=== PATIENT | female | born 1950 | race Caucasian/White ===

== ENCOUNTER 2016-12-04 08:41 | Outpatient (CLI) | payer MEDICARE | END 2016-12-04 08:42 | disposition home or self-care (01) | DX: Z13.220 Encounter for screening for lipoid disorders (principal) ==

== ENCOUNTER 2016-12-28 08:51 | Outpatient (CLI) | payer MEDICARE | END 2016-12-28 08:52 | disposition home or self-care (01) | DX: I10 Essential (primary) hypertension (principal) ==

== ENCOUNTER 2017-02-26 14:47 | Outpatient (CLI) | payer MEDICARE ==
--- NOTE | 2017-03-05 16:30 | Mammography Report ---
DIGITAL SCREENING MAMMOGRAM: 02/26/2017 CLINICAL INDICATION: A 66-year-old nulliparous patient with family history of breast cancer, history of benign biopsy for screening. COMPARISON: Films from [place], [place] dated 05/02/2013, 01/24/2011, 01/24/2010. TECHNIQUE: Routine CC and MLO projections were obtained of the breasts. FINDINGS: The breasts again demonstrate scattered fibroglandular parenchyma bilaterally. Coarse and punctate, typically benign calcifications are present. No suspicious masses, clustered microcalcifi cations, or regions of architectural distortion are identified. IMPRESSION: BENIGN FINDINGS. RECOMMENDATION: Routine annual screening unless otherwise clinically indicated. BI-RADS category 2, benign findings. STANDARD QUALIFYING STATEMENTS 1. This examination was reviewed with the aid of Computer-Aided Detection (CAD). 2. A negative or benign imaging report should not delay biopsy if clinically suspicious findings are present. Consider surgical consultation if warranted. More than 5% of cancers are not identified by i maging. 3. Dense breasts may obscure an underlying neoplasm. JOB #: [id number] EXT JOB #:[id number]
== END 2017-02-26 14:48 | disposition home or self-care (01) ==
LOC: DI.S 14:47
PROVIDERS: ATTEND Nurse Practitioner Family
DX: Z12.31 Encounter for screening mammogram for malignant neoplasm of breast (principal); Z80.3 Family history of malignant neoplasm of breast
CPT/HCPCS: 77067

== ENCOUNTER 2017-05-23 13:58 | Outpatient (CLI) | payer MEDICARE ==
--- NOTE | 2017-05-24 10:55 | XRAY Report ---
FOUR VIEW RIGHT KNEE: 05/23/2017 CLINICAL INDICATION: Pain. FINDINGS: AP, bilateral oblique, lateral views of the right knee demonstrate moderate to severe righ t knee osteoarthritis. There is no evidence of acute fracture. No effusion is present. There is an in tramedullary sheron in the tibia, with two proximal and two distal locking screws in place, with a heale d mid shaft fracture of the tibia, and two healed fractures of the fibular shaft noted. IMPRESSION: MODERATE TO SEVERE RIGHT KNEE OSTEOARTHRITIS. PREVIOUS ORIF OF THE RIGHT TIBIA. JOB #: [id number] EXT JOB #:[id number]
== END 2017-05-23 13:59 | disposition home or self-care (01) ==
LOC: DI.S 13:58
PROVIDERS: ATTEND Nurse Practitioner Family
DX: M17.11 Unilateral primary osteoarthritis, right knee (principal)

== ENCOUNTER 2017-07-09 14:51 | Outpatient (CLI) | payer MEDICARE, OTHER ==
--- NOTE | 2017-07-09 16:34 | MRI Report ---
EXAM: RIGHT KNEE MRI WITHOUT CONTRAST EXAM DATE: 07/09/2017 03:35 PM. CLINICAL HISTORY: COMPLEX TEAR OF LATERAL MENISCUS, CURRENT INJ. COMPARISON: None. TECHNIQUE: Multiplanar, multisequence T1-weighted and fluid-sensitive sequences of the knee without c ontrast. Other: Had to use flex-m coil due to size of knee unable to fit in knee coil. FINDINGS: Bones: Hardware in proximal tibia created magnetic susceptibility artifacts obscuring adjacent struct ures. No fractures or subluxations. Tricompartmental osteoarthritis with large osteophytes. Articular Cartilage: Grade 3 to 4 cartilaginous degeneration with severe thinning and probable denuda tion in the medial femoral condyle and medial tibial plateau with joint space narrowing. Grade 3 dege neration with thinning and irregular surface in the patella, trochlea, lateral femoral condyle and la teral tibial plateau. Medial Meniscus: Diffuse degenerative signal and surface fraying in the medial meniscus. Small tears may be present. Lateral Meniscus: Macerated appearance of the body and posterior horn of the lateral meniscus consist ent with complex tears. A horizontal tear is present in the anterior horn. Cruciate Ligaments: The anterior cruciate ligament is lax with diffuse mildly increased signal and il l-defined fibers suggestive of intrasubstance partial-thickness tear. The posterior cruciate ligament is intact. Collateral Ligaments: The medial collateral and lateral collateral ligamentous structures are intact. Tendons: The quadriceps, patellar, semimembranosus, and popliteus tendons are unremarkable. Musculature: No edema. [id number] muscular fatty atrophy. Other: Mild effusion. No popliteal cyst. Multiple loose bodies, the largest is posterior to the media l femoral condyle measuring 1.9 cm. The medial and lateral retinacula, patellofemoral ligaments and iliotibial band are intact. No bursitis. The subcutaneous tissues and fat pads are unremarkable. IMPRESSION: 1. Internal derangement with multiple abnormalities. 2. Macerated appearance of the body and posterior horn of the lateral meniscus consistent with comple x tears. A horizontal tear is present in the anterior horn. 3. Diffuse degenerative signal and surface fraying in the medial meniscus. Small tears may be present . 4. The anterior cruciate ligament is lax with diffuse mildly increased signal and ill-defined fibers suggestive of intrasubstance partial-thickness tear. 5. Tricompartmental osteoarthritis with large osteophytes. No fracture. 6. Grade 3 to 4 cartilaginous degeneration with severe thinning and probable denudation in the medial femoral condyle and medial tibial plateau with joint space narrowing. Grade 3 degeneration with thin rebecca and irregular surface in the patella, trochlea, lateral femoral condyle and lateral tibial plate au. 7. Multiple intra-articular loose bodies. [facility] MUSCULOSKELETAL RADIOLOGY SECTION Referring Provider Line: [phone] SITE ID: [id number]
== END 2017-07-09 14:52 | disposition home or self-care (01) ==
LOC: DI 14:51
PROVIDERS: ATTEND Orthopaedic Surgery
DX: S83.271A Complex tear of lateral meniscus, current injury, right knee, initial encounter (principal); M23.91 Unspecified internal derangement of right knee; M17.0 Bilateral primary osteoarthritis of knee; M23.41 Loose body in knee, right knee

== ENCOUNTER 2018-04-22 08:53 | Outpatient (CLI) | payer MEDICARE, OTHER ==
[2018-04-22 13:09] LABS: BASOPHILS % (AUTO) 0.6 %; EOSINOPHILS # (AUTO) 0.1 10^3/uL (0.0-0.7); EOSINOPHILS % (AUTO) 1.4 %; HGB - HEMOGLOBIN 13.8 g/dL (12.0-16.0); LYMPHOCYTES # (AUTO) 1.3 10^3/uL (1.5-3.5); MEAN CORPUSCULAR HGB CONC 32.7 g/dL (32.0-36.0); MEAN CORPUSCULAR VOLUME 91.8 fL (81.0-99.0); MONOCYTES # (AUTO) 0.7 10^3/uL (0.0-1.0); MONOCYTES % (AUTO) 8.4 %; NEUTROPHILS # (AUTO) 5.7 10^3/uL (1.5-6.6); NEUTROPHILS % (AUTO) 72.6 %; PLT - PLATELET COUNT 332 10^3/uL (130-450); RED BLOOD COUNT 4.59 10^6/uL (4.20-5.40); RED CELL DISTRIBUTION WIDTH 14.6 % (12.0-15.0); WHITE BLOOD COUNT 7.9 x10^3/uL (4.8-10.8)
[2018-04-22 13:37] LABS: ALBUMIN 3.8 g/dL (3.2-5.5); ALBUMIN/GLOBULIN RATIO 1.1 (1.0-2.2); ALKALINE PHOSPHATASE 67 IU/L (42-121); ALT ALANINE AMINOTRANSFERASE 15 IU/L (10-60); AST ASPARTATE AMINOTRANSFERASE 19 IU/L (10-42); BILIRUBIN,TOTAL 0.7 mg/dL (0.2-1.0); BUN - BLOOD UREA NITROGEN 23 mg/dL (6-20); CALCIUM 9.3 mg/dL (8.5-10.3); CARBON DIOXIDE - CO2 26 mmol/L (21-32); CHLORIDE 105 mmol/L (101-111); CHOL/HDL RATIO 4.1 (<4.4); CHOLESTEROL 273 mg/dL; CREATININE 0.7 mg/dL (0.4-1.0); GFR - MDRD 84 (>89); GLUCOSE 108 mg/dL (70-100); HDL CHOLESTEROL 67 mg/dL; LDL CHOLESTEROL,CALCULATED 183 mg/dL; LDL/HDL RATIO 2.7 (<4.4); SODIUM 138 mmol/L (135-145); TOTAL PROTEIN 7.2 g/dL (6.7-8.2); VLDL CHOLESTEROL 23 mg/dL
== END 2018-04-22 08:54 | disposition home or self-care (01) ==
LOC: LAB.F 08:53
PROVIDERS: ATTEND Nurse Practitioner Family
DX: Z13.220 Encounter for screening for lipoid disorders (principal); I10 Essential (primary) hypertension
CPT/HCPCS: 36415; 80053; 80061; 83721; 84443; 85025

== ENCOUNTER 2018-05-29 16:27 | Outpatient (CLI) | payer MEDICARE, OTHER | END 2018-05-29 16:28 | disposition home or self-care (01) | LOC: RT.S 16:27 | PROVIDERS: ATTEND Nurse Practitioner Family | DX: Z01.810 Encounter for preprocedural cardiovascular examination (principal); M17.11 Unilateral primary osteoarthritis, right knee | CPT/HCPCS: 93005 ==

== ENCOUNTER 2018-05-30 08:38 | Outpatient (CLI) | payer MEDICARE, OTHER ==
[2018-05-30 10:37] LABS: INR 1.1 (0.8-1.2); PT - PROTHROMBIN TIME 12.2 secs (9.9-12.6)
[2018-05-30 10:43] LABS: BASOPHILS # (AUTO) 0.1 10^3/uL (0.0-0.1); EOSINOPHILS # (AUTO) 0.1 10^3/uL (0.0-0.7); LYMPHOCYTES # (AUTO) 1.2 10^3/uL (1.5-3.5); MONOCYTES # (AUTO) 0.6 10^3/uL (0.0-1.0); MONOCYTES % (AUTO) 7.3 %; PLT - PLATELET COUNT 326 10^3/uL (130-450)
[2018-05-30 10:55] LABS: ALBUMIN 4.2 g/dL (3.2-5.5); ALBUMIN/GLOBULIN RATIO 1.4 (1.0-2.2); ALKALINE PHOSPHATASE 78 IU/L (42-121); ALT ALANINE AMINOTRANSFERASE 19 IU/L (10-60); AST ASPARTATE AMINOTRANSFERASE 20 IU/L (10-42); BASOPHILS % (AUTO) 0.8 %; BILIRUBIN,TOTAL 0.8 mg/dL (0.2-1.0); BUN - BLOOD UREA NITROGEN 17 mg/dL (6-20); CALCIUM 9.6 mg/dL (8.5-10.3); CARBON DIOXIDE - CO2 27 mmol/L (21-32); CHLORIDE 104 mmol/L (101-111); CREATININE 0.9 mg/dL (0.4-1.0); EOSINOPHILS % (AUTO) 1.1 %; GFR - MDRD 63 (>89); GLUCOSE 114 mg/dL (70-100); HGB - HEMOGLOBIN 14.1 g/dL (12.0-16.0); LYMPHOCYTES % (AUTO) 15.3 %; MEAN CORPUSCULAR HEMOGLOBIN 30.3 pg (27.0-31.0); MEAN CORPUSCULAR HGB CONC 33.7 g/dL (32.0-36.0); MEAN CORPUSCULAR VOLUME 90.1 fL (81.0-99.0); MEAN PLATELET VOLUME 9.2 fL (7.9-10.8); NEUTROPHILS # (AUTO) 6.1 10^3/uL (1.5-6.6); NEUTROPHILS % (AUTO) 75.5 %; RED BLOOD COUNT 4.65 10^6/uL (4.20-5.40); RED CELL DISTRIBUTION WIDTH 14.4 % (12.0-15.0); SODIUM 140 mmol/L (135-145); TOTAL PROTEIN 7.3 g/dL (6.7-8.2)
[2018-05-30 10:59] LABS: CRP - C-REACTIVE PROTEIN < 1.0 mg/dL (0-1.0)
== END 2018-05-30 08:39 | disposition home or self-care (01) ==
LOC: LAB.F 08:38
PROVIDERS: ATTEND Nurse Practitioner Family
DX: Z01.818 Encounter for other preprocedural examination (principal); M17.11 Unilateral primary osteoarthritis, right knee
CPT/HCPCS: 36415; 80053; 85025; 85610; 85651; 86140

== ENCOUNTER 2019-07-28 14:08 | Outpatient (CLI) | payer MEDICARE, OTHER ==
--- NOTE | 2019-07-29 11:04 | DEXA Report ---
Reason: MENOPAUSAL AND POSTMENOPAUSAL DISORDER Procedure Date: 07/28/2019 Accession Number: [id number] / [id number] Procedure: DEX - Dexa Spine and/or Hip CPT Code: FULL RESULT: EXAM: Dexa Spine and/or Hip DATE: 07/28/2019 2:47 PM CLINICAL HISTORY: MENOPAUSAL AND POSTMENOPAUSAL DISORDER TECHNIQUE: Dual energy x-ray absorptiometry (DXA) was performed on a LYCEEM System. Regions measured are the AP Spine, femoral neck, and if needed forearm. COMPARISON: None. In accordance with the International Society for Clinical Densitometry (ISCD) guidelines, data from previous exams may be reanalyzed using current recommendations and techniques. This is done to allow a more accurate basis for comparison with the current study. FINDINGS: The data for the lumbar spine is as follows: BMD (g/cm/cm) T-SCORE Z-SCORE REGION L1 1.313 1.5 2.0 L2 1.501 2.5 3.0 L3 1.580 3.2 3.7 L4 1.705 4.2 4.7 TOTAL 1.538 3.0 3.5 NOTE: All evaluable vertebrae are used for classification The data for the hip is as follows: BMD (g/cm/cm) T-SCORE Z-SCORE REGION Neck 0.932 -0.8 0.1 TOTAL 1.046 0.3 0.8 NOTE: The femoral neck or total proximal femur, whichever is lowest, is used for classification. IMPRESSION: THE WHO CLASSIFICATION BASED ON THE INTERNATIONAL REFERENCE STANDARD IS NORMAL. THE FRACTURE RISK IS NOT INCREASED. RECOMMENDATION: Patients with diagnosis of osteoporosis or osteopenia should have regular bone mineral density assessment. For those eligible for Medicare, routine testing is allowed once every 2 years. Testing frequency can be increased for patients who have rapidly progressing disease or for those who are receiving medical therapy to restore bone mass. COMMENT: World Health Organization (WHO) definitions for osteoporosis and osteopenia: NORMAL BMD: T-score at -1.0 or higher, fracture risk is low OSTEOPENIA BMD: T-score between -1.0 and -2.5, fracture risk is increased. OSTEOPOROSIS BMD: T-score at -2.5 or lower, fracture risk is high. National Osteoporosis Foundation recommends: 1. Obtain adequate dietary calcium (at least 1200 mg per day) and vitamin D (400-800 international units per day). 2. Participate, as appropriate, in regular weightbearing and muscle-strengthening exercise. 3. Avoid tobacco use and reduce alcohol and caffeine intake. 4. For more detailed information see the website at www.NOF.org.
== END 2019-07-28 14:09 | disposition home or self-care (01) ==
LOC: DI 14:08
PROVIDERS: ATTEND Internal Medicine
DX: N95.8 Other specified menopausal and perimenopausal disorders (principal)
CPT/HCPCS: 77080

== ENCOUNTER 2019-07-28 14:13 | Outpatient (CLI) | payer MEDICARE, OTHER ==
--- NOTE | 2019-07-29 12:44 | Mammography Report ---
Reason: SCREENING MAMMO Procedure Date: 07/28/2019 Accession Number: [id number] / [id number] Procedure: FELISA - Screening Mammo w/Filemon CPT Code: FULL RESULT: EXAM: Screening Mammo w/Filemon DATE: 07/28/2019 2:57 PM CLINICAL HISTORY: Routine screening TECHNIQUE: (B) - Bilateral CC and MLO views were obtained. COMPARISON: 02/26/2017, 07/03/2013, 01/24/2011 and 01/24/2010 PARENCHYMAL PATTERN: (F) - The breasts demonstrate diffuse fatty replacement bilaterally. FINDINGS: No significant interval change. There are no suspicious masses, calcifications, or areas of distortion. IMPRESSION: Negative examination. BI-RADS category 1. RECOMMENDATION: (ANNUAL) - Recommend routine annual screening mammography. BI-RADS CATEGORY: (1) - Negative. STANDARD QUALIFYING STATEMENTS: 1. This examination was not reviewed with the aid of Computer-Aided Detection (CAD). 2. A negative or benign imaging report should not preclude biopsy if clinically suspicious findings are present. 3. Dense breasts may obscure an underlying neoplasm. 4. This examination was reviewed with the aid of 3D breast imaging (tomosynthesis).
== END 2019-07-28 14:14 | disposition home or self-care (01) ==
LOC: DI 14:13
PROVIDERS: ATTEND Internal Medicine
DX: Z12.31 Encounter for screening mammogram for malignant neoplasm of breast (principal)
CPT/HCPCS: 77063; 77067

== ENCOUNTER 2021-12-12 13:05 | Outpatient (CLI) | payer MEDICARE, OTHER ==
--- NOTE | 2021-12-13 07:17 | Mammography Report ---
BILATERAL DIGITAL SCREENING MAMMOGRAM 3D/2D: 12/12/2021 CLINICAL: Routine screening. Family history of breast cancer. Comparison is made to exams dated: 07/28/2019 mammogram and 02/26/2017 mammogram - Located within [facility]. There are scattered fibroglandular elements in both breasts. There are benign calcifications in both breasts. No significant masses, calcifications, or other findings are seen in either breast. There has been no significant interval change. IMPRESSION: BENIGN There is no mammographic evidence of malignancy. A 1 year screening mammogram is recommended. This exam was interpreted at Station ID: [id number]. NOTE: For mammograms, a report in lay terms will be sent to the patient. Approximately 15% of breast malignancies will not be visualized mammographically. In the management of a palpable breast mass, a negative mammogram must not discourage biopsy of a clinically suspicious lesion. Electronically Signed By: Jluis Robin M.D. ddp/penrad:12/12/2021 15:53:45 ACR BI-RADS Category 2: Benign Finding(s) 3342F PARENCHYMAL PATTERN: (A) - The breast(s) demonstrate(s) scattered fibroglandular densities. BI-RADS CATEGORY: (2) - 2 RECOMMENDATION: (ANNUAL) - Recommend routine annual screening mammography. [id number] 1 year screening LATERALITY: (B)
== END 2021-12-12 13:06 | disposition home or self-care (01) ==
LOC: DI.S 13:05
PROVIDERS: ATTEND Physician Assistant
DX: Z12.31 Encounter for screening mammogram for malignant neoplasm of breast (principal); Z80.3 Family history of malignant neoplasm of breast

== ENCOUNTER 2022-03-06 12:40 | Outpatient (CLI) | payer MEDICARE, OTHER ==
[2022-03-06 14:14] LABS: BASOPHILS # (AUTO) 0.1 10^3/uL (0.0-0.1); BASOPHILS % (AUTO) 0.9 %; EOSINOPHILS # (AUTO) 0.1 10^3/uL (0.0-0.7); EOSINOPHILS % (AUTO) 1.2 %; HCT - HEMATOCRIT 44.5 % (37.0-47.0); HGB - HEMOGLOBIN 13.2 g/dL (12.0-16.0); LYMPHOCYTES # (AUTO) 1.6 10^3/uL (1.5-3.5); MEAN CORPUSCULAR HEMOGLOBIN 22.8 pg (27.0-31.0); MEAN CORPUSCULAR HGB CONC 29.7 g/dL (32.0-36.0); MEAN PLATELET VOLUME 10.5 fL (7.9-10.8); MONOCYTES # (AUTO) 0.8 10^3/uL (0.0-1.0); MONOCYTES % (AUTO) 8.3 %; NEUTROPHILS # (AUTO) 6.9 10^3/uL (1.5-6.6); NEUTROPHILS % (AUTO) 72.3 %; PLT - PLATELET COUNT 614 10^3/uL (130-450); RED BLOOD COUNT 5.78 10^6/uL (4.20-5.40); WHITE BLOOD COUNT 9.5 x10^3/uL (4.8-10.8)
[2022-03-06 14:38] LABS: PLATELET ESTIMATE, MANUAL INCREASED (>450,000) (NORMAL); PLATELET MORPHOLOGY NORMAL APPEARANCE (NORMAL); RBC MORPHOLOGY (MULTIPLE) 2+ ANISOCYTOSIS (NORMAL); SLIDE REVIEW? Indicated
[2022-03-06 14:46] LABS: THYROID STIMULATING HORMONE 3.26 uIU/mL (0.34-5.60)
[2022-03-06 14:51] LABS: % IRON SATURATION 5 % (20-50); IRON 29 ug/dL (28-170); TOTAL IRON BINDING CAPACITY 566 ug/dL (250-450); TRANSFERRIN 404 mg/dL (192-382)
[2022-03-06 14:52] LABS: FERRITIN 8.8 ng/mL (11.0-306.8)
== END 2022-03-06 12:41 | disposition home or self-care (01) ==
LOC: LAB.S 12:40
PROVIDERS: ATTEND Physician Assistant
DX: E61.1 Iron deficiency (principal); E03.9 Hypothyroidism, unspecified
CPT/HCPCS: 36415; 82728; 83540; 84443; 84466; 85025

== ENCOUNTER 2022-12-12 09:14 | Outpatient (CLI) | payer MEDICARE, OTHER ==
[2022-12-12 14:23] LABS: BASOPHILS # (AUTO) 0.1 10^3/uL (0.0-0.1); BASOPHILS % (AUTO) 0.8 %; EOSINOPHILS # (AUTO) 0.1 10^3/uL (0.0-0.7); EOSINOPHILS % (AUTO) 1.1 %; HCT - HEMATOCRIT 39.5 % (37.0-47.0); HGB - HEMOGLOBIN 11.9 g/dL (12.0-16.0); LYMPHOCYTES # (AUTO) 1.4 10^3/uL (1.5-3.5); LYMPHOCYTES % (AUTO) 14.6 %; MEAN CORPUSCULAR HEMOGLOBIN 24.5 pg (27.0-31.0); MEAN CORPUSCULAR HGB CONC 30.1 g/dL (32.0-36.0); MEAN CORPUSCULAR VOLUME 81.4 fL (81.0-99.0); MEAN PLATELET VOLUME 10.8 fL (7.9-10.8); MONOCYTES # (AUTO) 0.8 10^3/uL (0.0-1.0); MONOCYTES % (AUTO) 8.4 %; NEUTROPHILS # (AUTO) 7.4 10^3/uL (1.5-6.6); NEUTROPHILS % (AUTO) 74.8 %; PLT - PLATELET COUNT 559 10^3/uL (130-450); RED BLOOD COUNT 4.85 10^6/uL (4.20-5.40); RED CELL DISTRIBUTION WIDTH 17.1 % (12.0-15.0); WHITE BLOOD COUNT 9.9 x10^3/uL (4.8-10.8)
[2022-12-12 15:12] LABS: ALBUMIN 3.8 g/dL (3.2-5.5); ALBUMIN/GLOBULIN RATIO 1.1 (1.0-2.2); BILIRUBIN,TOTAL 0.7 mg/dL (0.2-1.0); CALCIUM 9.2 mg/dL (8.5-10.3); CREATININE 0.7 mg/dL (0.4-1.0); MAGNESIUM 1.7 mg/dL (1.7-2.8); TOTAL PROTEIN 7.2 g/dL (6.7-8.2)
[2022-12-12 15:21] LABS: THYROID STIMULATING HORMONE 4.55 uIU/mL (0.34-5.60)
== END 2022-12-12 09:15 | disposition home or self-care (01) ==
LOC: LAB.S 09:14
PROVIDERS: ATTEND Physician Assistant Medical
DX: I47.1 Supraventricular tachycardia (principal)
CPT/HCPCS: 36415; 80053; 83735; 84443; 85025

== ENCOUNTER 2022-12-20 12:38 | Outpatient (CLI) | payer MEDICARE, OTHER ==
--- NOTE | 2022-12-20 13:06 | XRAY Report ---
PROCEDURE: Knee 3 View LT INDICATIONS: PAIN OF LEFT KNEE JOINT TECHNIQUE: 3 views of the left knee(s) were acquired. COMPARISON: X-ray knee 12/20/2022 FINDINGS: Bones: No fractures or dislocations. No suspicious bony lesions. The arthroplasty is present. Andrew dware is intact without evidence of hardware fracture or periprosthetic lucency to suggest loosening. Soft tissues: No joint effusion. No suspicious soft tissue calcifications. IMPRESSION: Stable appearance of knee arthroplasty. Reviewed by: Zulma Lomas MD on 12/20/2022 1:05 PM PDT Approved by: Zulma Lomas MD on 12/20/2022 1:05 PM PDT Station ID: [id number]
== END 2022-12-20 12:39 | disposition home or self-care (01) ==
LOC: DI.S 12:38
PROVIDERS: ATTEND Physician Assistant
DX: M25.562 Pain in left knee (principal); Z96.652 Presence of left artificial knee joint

== ENCOUNTER 2023-04-29 08:21 | Outpatient (CLI) | payer MEDICARE, OTHER ==
[2023-04-29 15:14] LABS: BASOPHILS # (AUTO) 0.1 10^3/uL (0.0-0.1); EOSINOPHILS # (AUTO) 0.1 10^3/uL (0.0-0.7); EOSINOPHILS % (AUTO) 0.7 %; HGB - HEMOGLOBIN 13.8 g/dL (12.0-16.0); LYMPHOCYTES # (AUTO) 1.4 10^3/uL (1.5-3.5); LYMPHOCYTES % (AUTO) 13.9 %; MEAN CORPUSCULAR HEMOGLOBIN 22.7 pg (27.0-31.0); MEAN CORPUSCULAR VOLUME 75.8 fL (81.0-99.0); MEAN PLATELET VOLUME 9.9 fL (7.9-10.8); MONOCYTES # (AUTO) 0.8 10^3/uL (0.0-1.0); MONOCYTES % (AUTO) 7.5 %; NEUTROPHILS # (AUTO) 7.8 10^3/uL (1.5-6.6); NEUTROPHILS % (AUTO) 76.4 %; PLT - PLATELET COUNT 538 10^3/uL (130-450); RED BLOOD COUNT 6.07 10^6/uL (4.20-5.40); WHITE BLOOD COUNT 10.1 x10^3/uL (4.8-10.8)
[2023-04-29 15:22] LABS: SLIDE REVIEW? Indicated
[2023-04-29 15:34] LABS: CALCIUM 9.7 mg/dL (8.5-10.3); CREATININE 0.8 mg/dL (0.6-1.3); POTASSIUM 4.2 mmol/L (3.5-4.5)
[2023-04-29 15:48] LABS: INR 1.1 (0.8-1.2); PT - PROTHROMBIN TIME 11.8 secs (9.9-12.6)
[2023-04-29 16:20] LABS: PLATELET ESTIMATE, MANUAL INCREASED (>450,000) (NORMAL); PLATELET MORPHOLOGY NORMAL APPEARANCE (NORMAL); RBC MORPHOLOGY (MULTIPLE) 1+ ANISOCYTOSIS (NORMAL)
== END 2023-04-29 08:22 | disposition home or self-care (01) ==
LOC: LAB.S 08:21
PROVIDERS: ATTEND Internal Medicine Cardiovascular Disease
DX: I10 Essential (primary) hypertension (principal); R94.39 Abnormal result of other cardiovascular function study; I48.20 Chronic atrial fibrillation, unspecified; W19.XXXA Unspecified fall, initial encounter
CPT/HCPCS: 36415; 80048; 85025; 85610

== ENCOUNTER 2023-07-08 07:51 | Outpatient (CLI) | payer MEDICARE, OTHER ==
[2023-07-08 14:58] LABS: BASOPHILS # (AUTO) 0.1 10^3/uL (0.0-0.1); BASOPHILS % (AUTO) 0.7 %; EOSINOPHILS # (AUTO) 0.1 10^3/uL (0.0-0.7); EOSINOPHILS % (AUTO) 1.2 %; HCT - HEMATOCRIT 46.7 % (37.0-47.0); LYMPHOCYTES # (AUTO) 1.3 10^3/uL (1.5-3.5); LYMPHOCYTES % (AUTO) 15.4 %; MEAN CORPUSCULAR HEMOGLOBIN 24.9 pg (27.0-31.0); MEAN CORPUSCULAR VOLUME 82.9 fL (81.0-99.0); MEAN PLATELET VOLUME 10.2 fL (7.9-10.8); MONOCYTES # (AUTO) 0.7 10^3/uL (0.0-1.0); NEUTROPHILS # (AUTO) 6.2 10^3/uL (1.5-6.6); NEUTROPHILS % (AUTO) 74.6 %; PLT - PLATELET COUNT 440 10^3/uL (130-450); RED BLOOD COUNT 5.63 10^6/uL (4.20-5.40); RED CELL DISTRIBUTION WIDTH 22.6 % (12.0-15.0); WHITE BLOOD COUNT 8.3 x10^3/uL (4.8-10.8)
[2023-07-08 15:10] LABS: SLIDE REVIEW? Indicated
[2023-07-08 15:29] LABS: CALCIUM 9.4 mg/dL (8.5-10.3); CREATININE 0.7 mg/dL (0.6-1.3); POTASSIUM 4.2 mmol/L (3.5-4.5)
[2023-07-08 15:49] LABS: INR 1.1 (0.8-1.2); PT - PROTHROMBIN TIME 11.8 secs (9.9-12.6)
[2023-07-08 18:52] LABS: PLATELET ESTIMATE, MANUAL INCREASED (>450,000) (NORMAL); RBC MORPHOLOGY (MULTIPLE) NORMAL APPEARANCE (NORMAL)
== END 2023-07-08 07:52 | disposition home or self-care (01) ==
LOC: LAB.S 07:51
PROVIDERS: ATTEND Specialist
DX: I48.20 Chronic atrial fibrillation, unspecified (principal); I25.10 Atherosclerotic heart disease of native coronary artery without angina pectoris
CPT/HCPCS: 36415; 80048; 85025; 85610

== ENCOUNTER 2023-08-21 08:19 | Outpatient (CLI) | payer MEDICARE, OTHER ==
[2023-08-21 15:13] LABS: BASOPHILS # (AUTO) 0.1 10^3/uL (0.0-0.1); BASOPHILS % (AUTO) 0.9 %; EOSINOPHILS # (AUTO) 0.1 10^3/uL (0.0-0.7); HCT - HEMATOCRIT 44.8 % (37.0-47.0); HGB - HEMOGLOBIN 13.6 g/dL (12.0-16.0); LYMPHOCYTES # (AUTO) 1.1 10^3/uL (1.5-3.5); LYMPHOCYTES % (AUTO) 13.8 %; MEAN CORPUSCULAR HEMOGLOBIN 25.7 pg (27.0-31.0); MEAN CORPUSCULAR HGB CONC 30.4 g/dL (32.0-36.0); MEAN CORPUSCULAR VOLUME 84.7 fL (81.0-99.0); MEAN PLATELET VOLUME 9.7 fL (7.9-10.8); MONOCYTES # (AUTO) 0.7 10^3/uL (0.0-1.0); MONOCYTES % (AUTO) 8.5 %; NEUTROPHILS # (AUTO) 5.9 10^3/uL (1.5-6.6); NEUTROPHILS % (AUTO) 75.4 %; PLT - PLATELET COUNT 393 10^3/uL (130-450); RED BLOOD COUNT 5.29 10^6/uL (4.20-5.40); WHITE BLOOD COUNT 7.8 x10^3/uL (4.8-10.8)
[2023-08-21 15:25] LABS: INR 1.1 (0.8-1.2); PT - PROTHROMBIN TIME 11.5 secs (9.9-12.6)
[2023-08-21 15:46] LABS: CALCIUM 9.5 mg/dL (8.5-10.3); CREATININE 0.6 mg/dL (0.6-1.3); POTASSIUM 4.3 mmol/L (3.5-4.5)
== END 2023-08-21 08:20 | disposition home or self-care (01) ==
LOC: LAB.S 08:19
PROVIDERS: ATTEND Internal Medicine Cardiovascular Disease
DX: Z95.818 Presence of other cardiac implants and grafts (principal)
CPT/HCPCS: 36415; 80048; 85025; 85610